=== PATIENT | male | born 1960 ===

== ENCOUNTER 2018-05-11 09:18 | Outpatient (CLI) | payer SELFPAY | END 2018-05-11 09:19 | disposition home or self-care (01) | LOC: C.LAB 09:18 | DX: Z68.34 Body mass index [BMI] 34.0-34.9, adult (principal); E11.9 Type 2 diabetes mellitus without complications; I10 Essential (primary) hypertension ==

== ENCOUNTER 2018-07-22 11:26 | Outpatient (CLI) | payer SELFPAY | END 2018-07-22 11:27 | disposition home or self-care (01) | LOC: C.LAB 11:26 | DX: E11.29 Type 2 diabetes mellitus with other diabetic kidney complication (principal); R80.9 Proteinuria, unspecified ==